=== PATIENT | male | born 1965 ===

== ENCOUNTER 2022-05-01 01:03 | Day surgery (SDC) | payer OTHER, SELFPAY ==
[2022-04-30 15:48] VITALS: BMI 30.4
[2022-05-01] VITALS (7 sets, daily range): BP systolic 138–148; BP diastolic 96–108; PULSE 87–99; RESP 18–20; TEMP 37.1; O2SAT 97–100; BMI 32.5
[2022-05-01 07:38] LABS: Basophils Absolute Auto 0.1 K/mm3 (0.0-0.1); Basophils Percent Auto 1.6 % (0.2-1.2); Eosinophils Absolute Auto 0.3 K/mm3 (0-0.3); Hematocrit 41.8 % (42.0-52.0); Immature Granulocyte Absolute 0.02 K/mm3 (0.00-0.031); Immature Granulocyte Percent A 0.3 % (0-0.5); Lymphocytes Absolute Auto 1.89 K/mm3 (0.9-3.2); Lymphocytes Percent Auto 30.1 % (18.3-44.2); Mean Corpuscular HGB Conc 35.9 g/dl (32-36); Mean Corpuscular Hemoglobin 36.9 pg (26-34); Mean Platelet Volume 9.2 fl (7.4-10.4); Monocytes Absolute Auto 0.6 K/mm3 (0.1-0.6); Monocytes Percent Auto 9.7 % (2.6-8.5); Neutrophils Absolute Auto 3.4 K/mm3 (1.3-6.7); Neutrophils Percent Auto 54.3 % (45.5-73.1); Platelet Count Result 217 k/mm3 (150-375); Red Blood Count 4.06 M/mm3 (4.6-6.20); Red Cell Distribution Width 13.7 % (11.5-14.5); White Blood Count 6.3 K/mm3 (4.5-10.0)
[2022-05-01 07:48] LABS: Anion Gap 15 mmol/L (8-16); Blood Urea Nitrogen 18 mg/dL (9-20); Calcium 9.6 mg/dL (8.4-10.2); Carbon Dioxide 25 mmol/L (22-30); Chloride 102 mmol/L (98-107); Estimated CRCL calculation 86 ml/min; Estimated Glomerular Filt Rate > 60; Glucose 118 mg/dL (65-110); Potassium 4.3 mmol/L (3.4-5.0); Sodium 142 mmol/L (137-145)
--- NOTE | 2022-05-01 08:46 | WPDMODSED ---
Moderate Sedation Note-Pt Data Patient Data Diagnosis: Newly diagnosed left ventricular systolic dysfunction left bundle branch block Present Complaint: dizziness Procedure to be performed/Plan: left heart catheterization Allergies Allergy/AdvReac Type Severity Reaction Status Date / Time No Known Allergies Allergy Verified 05/01/22 07:36 Home Medications Medication Instructions Recorded Confirmed Type amlodipine 2.5 mg tablet 2.5 mg PO DAILY 04/30/22 04/30/22 History aspirin 81 mg tablet 81 mg PO DAILY 04/30/22 04/30/22 History hydrochlorothiazide 12.5 mg tablet 12.5 mg PO DAILY 04/30/22 04/30/22 History olmesartan 20 mg tablet 20 mg PO DAILY 04/30/22 04/30/22 History rosuvastatin 20 mg tablet 20 mg PO DAILY 04/30/22 04/30/22 History Current Medications: Active Medications Sodium Chloride (Normal Saline Iv) 500 mls @ 100 mls/hr IV CONT .Q5H AYLA Sedation/Anesthesia: No previous sedation/anesthesia problems (including family history). [facility] Social History Social History Smoking status: Former smoker Tobacco type: cigarettes Additional smoking assessment comments: former light smoker (quit ~3 years ago) used to smoke 1 pack/2 months Alcohol intake: current Drinks per week: 5 Alcohol use details: the patient has learned the moment you give information it goes on paper and it becomes documented so his answer to number of drinks he has per week will be 5 I won't drink tonight Substance use: former Substance use type: former substance user and marijuana Other substance usage details: maybe used some of this stuff in the past, hasn't for a long time Living arrangements: with family Spiritual care concerns: No Mod Sed Physical Exam Physical Exam Pre Procedural Exam: Normal: Appearance, Neck, Throat, Lungs, Heart Rate, Heart Rhythm, Neuro Exam and Extremities and Variation: Heart Size ( PMI laterally displaced) Hours since solid foods: 12 Hours since liquid intake: 12 Mallampati Classification: class II Internal Medicine - PN: Obj Da Vital Signs Vital Signs: Vital Signs - 24 hr 05/01/22 07:41 Temperature 37.1 C Pulse Rate 97 Respiratory Rate 20 Blood Pressure 141/102 H Pulse Oximetry 97 Oxygen Delivery Room Air Meds/Results Medications: Active Medications Generic Name Dose Route Start Last Admin Trade Name Freq PRN Reason Stop Dose Admin Sodium Chloride 500 mls @ 100 mls/hr 05/01/22 07:00 Normal Saline Iv IV CONT .Q5H AYLA Labs CBC & Chem 7: 05/01/22 07:28 05/01/22 07:28 Labs: Laboratory Results - last 24 hr 05/01/22 05/01/22 07:28 07:28 WBC 6.3 RBC 4.06 L Hgb 15.0 Hct 41.8 L MCV 103.0 H MCH 36.9 H MCHC 35.9 RDW 13.7 Plt Count 217 MPV 9.2 Immature Gran % (Auto) 0.3 Neut % (Auto) 54.3 Lymph % (Auto) 30.1 [place] % (Auto) 9.7 H Eos % (Auto) 4.0 Baso % (Auto) 1.6 H Lymph # (Auto) 1.89 [place] # (Auto) 0.6 Eos # (Auto) 0.3 Baso # (Auto) 0.1 Abs Immat Gran (auto) 0.02 Absolute Neuts (auto) 3.4 Absolute Nucleated RBC 0.0 Nucleated RBC % 0.0 Sodium 142 Potassium 4.3 Chloride 102 Carbon Dioxide 25 Anion Gap 15 BUN 18 Creatinine 0.80 Estim Creat Clear Calc 86 Estimated GFR > 60 Glucose 118 H Calcium 9.6 ASA Classification/Sedation ASA Classification/Sedation ASA Class: II Emergent: No Risks: Risks, benefits and alternatives explained and patient/family accepted plan for sedation. Patient re-evaluated immediately prior to sedation.
--- NOTE | 2022-05-01 09:18 | P.PCNCC_ITS ---
Cardiac Cath Procedure Note Date of procedure:: 05/01/22 Performing physician:: Srinivasan Pacheco MD Indication:: left ventricular systolic dysfunction left bundle branch block Brief clinical history:: this is a 57-year-old patient who has been experiencing symptoms of dizziness. He has no prior cardiac history. A nuclear stress test was done to investigate these symptoms and he was found to have a left bundle branch block and poor left ventricular contractility. 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 Because of these findings left heart catheterization has been scheduled for today Procedure Procedure performed:: left ventriculogram coronary angiogram Angio-Seal to right femoral artery Sedation/Medication given:: fentanyl 50 mg Versed 2 mg case start time 8:54 a.m. case end time 9:13 a.m. sedation provided by Uche Gilman RN, trained observer Access site:: right femoral artery Estimated blood loss:: 20 cc Procedure note:: patient was brought to the cardiac catheterization lab in the postabsorptive state where the right femoral triangle was prepared and draped in the normal fashion. Anesthesia was provided with 1% lidocaine infiltrated locally. Using the modified Seldinger technique a 5 Yoruba sheath was placed into the right common femoral artery and then left heart catheterization was carried out. A 5 Yoruba angled pigtail catheter was used to measure left-sided hemodynamics and to inject the left ventriculogram in the BLOOM projection. Following this a st andard 5 Yoruba FL4 catheter was used to engage and inject the left coronary artery and then a 5 Yoruba JR4 catheter was used to engage and inject the right coronary artery. The cineangiograms were then reviewed and the case was terminated. Angio-Seal was deployed at the site of the arterial puncture with a good hemostatic result. The procedure was well tolerated and uncomplicated. 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 Findings:: Hemodynamics: Central aortic pressure is 148/88 left ventricle 1 44 over 6 end-diastolic pressure 18. No significant gradient noted upon pullback across the aortic valve. Left ventricle: The left ventricle is severely dilated there is severe global hypokinesia noted in all segments. Global ejection fraction visually estimated to be 20%. The left main coronary artery is short and nicely patent left anterior descending is a moderate to large caliber artery extending down to around the apex the LAD and its branches are smooth and angiographically normal. The circumflex is a large caliber artery giving rise to the marginal branches, posterior branches and a left PDA. The circumflex system is smooth and angiographically normal. The right coronary artery is small to medium in caliber non dominant giving rise to right ventricular vessels. The right coronary artery is smooth and angiographically normal. Conclusion:: 1. Left coronary dominant circulation with no evidence of coronary artery disease 2. left ventricular dilatation with severe global hypocontractility of low ejection fraction as detailed above Srinivasan Pacheco MD F[facility]
== END 2022-05-01 12:15 | disposition home or self-care (01) ==
PROVIDERS: Visit Provider Specialist
PROC: 4A023N7 Measurement of Cardiac Sampling and Pressure, Left Heart, Percutaneous Approach (ICD-10-PCS; CPT 93452; principal; 2022-05-01 08:30)
DX: R94.39 Abnormal result of other cardiovascular function study (principal); I44.7 Left bundle-branch block, unspecified; I11.9 Hypertensive heart disease without heart failure; R42 Dizziness and giddiness; Z87.898 Personal history of other specified conditions; Z87.891 Personal history of nicotine dependence; Z79.82 Long term (current) use of aspirin; Z79.51 Long term (current) use of inhaled steroids
CPT/HCPCS: 36415; 80048; 85025; 93458; C1760; C1887; C1894; G0269; J1644; J2001; J2250; J3010; J7040